=== PATIENT | male | born 1985 | race Caucasian/White ===

== ENCOUNTER 2019-11-10 02:37 | Outpatient (CLI) | payer OTHER, SELFPAY ==
[2019-11-10 23:05] LABS: SARS-CoV-2 RNA PCR Negative
== END 2019-11-10 02:38 | disposition home or self-care (01) ==
LOC: ANHCOVIDDT 03:18
PROVIDERS: PCP Family Medicine; Visit Provider Otolaryngology
DX: Z01.812 Encounter for preprocedural laboratory examination (principal); Z11.59 Encounter for screening for other viral diseases
CPT/HCPCS: 87635; C9803; U0003

== ENCOUNTER 2019-11-13 01:02 | Day surgery (SDC) | payer OTHER, SELFPAY ==
[2019-11-07 11:44] VITALS: BMI 29.6
--- NOTE | 2019-11-12 06:40 | PM.HPGS ---
History of Present Illness History of Present Illness Consent: Risks, benefits, and alternatives have been discussed and questions answered. Patient agrees to proceed with procedure. Chief complaint: Left Neck Mass Narrative: Mukesh Byrd is a 33 year old male with an enlarged submandibular area mass unresponsive to medical management Review of Systems Review of Systems: All systems reviewed & are unremarkable except as noted in HPI and below ROS unobtainable: Yes unobtainable due to endotracheal tube PMFSH Social History Social History Smoking packs per day: 0.5 Smoking cigarettes per day: 10.0 Years smoked: 10 Smoking pack-years: 5.00 Smoking status: Former smoker Tobacco type: cigarettes Smokeless tobacco user: chewing tobacco Second hand tobacco smoke exposure: Yes Smoking end date: 04/18/13 Additional smoking assessment comments: QUIT SMOKING 5-6 YEARS AGO Alcohol intake: never Substance use: never 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
[2019-11-13] VITALS (7 sets, daily range): BP systolic 111–135; BP diastolic 64–80; PULSE 56–78; RESP 14–20; TEMP 36.3–36.6; O2SAT 100
--- NOTE | 2019-11-13 06:09 | WPDHPUPDATE1 ---
History and Physical Update Update Date/Time: 11/13/19 06:09 History and Physical has been reviewed, including an updated exam of the patient. There are NO changes in the patient's condition. Risks, benefits, and alternatives have been discussed and questions answered. Patient agrees to proceed with procedure.
[2019-11-13] MEDS: LACTATED RINGERS 1,000 ML 30 ML IV CONT ×2 (08:00→10:14)
--- NOTE | 2019-11-13 08:12 | P.PNAN_ITS ---
Anes - Initial Pre Proc Eval Procedure: Operation Date: 11/13/19 09:30 Proposed Procedures p Excision Left Neck Mass - Master Jerez MD Date/Time: 11/13/19 08:12 Surgeon: Master Jerez MD Pre Op Diagnosis: Left Neck Mass Patient Data Age: 33 Gender: M Height: 1.73 m Weight: 89.1 kg Last Vital Signs Temp 36.6 C 11/13/19 08:03 Pulse 63 11/13/19 08:03 Resp 20 11/13/19 08:03 BP 123/74 11/13/19 08:03 Pulse Ox 100 11/13/19 08:03 Allergies Allergy/AdvReac Type Severity Reaction Status Date / Time No Known Allergies Allergy Verified 11/13/19 08:02 Home Medications Medication Instructions Recorded Confirmed Type green tea leaf ext-green tea 1 tablet PO DAILY 11/07/19 11/13/19 History [Green Tea Complex] Patient hx anesthesia problems: none Family hx anesthesia problems: none [facility] Past Medical History Medical History (Updated 11/13/19 @ 08:14 by Zaki Vines MD) Mass of left side of neck Overweight (BMI 25.0-29.9) Social History Social History Smoking packs per day: 0.5 Smoking cigarettes per day: 10.0 Years smoked: 10 Smoking pack-years: 5.00 Smoking status: Former smoker Tobacco type: cigarettes Smokeless tobacco user: chewing tobacco Second hand tobacco smoke exposure: Yes Smoking end date: 04/18/13 Additional smoking assessment comments: QUIT SMOKING 5-6 YEARS AGO Alcohol intake: never Substance use: never 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[employer] Gender identity (if verbalized by the patient): Male Spiritual care concerns: No Agree to blood products: Yes Anes - Eval Final PreProcedure Day of Procedure 11/13/19 08:12 Patient weight: overweight Heart: regular rate and rhythm Lungs: clear to auscultation and normal air movement Airway: Mallampati scale class II Neurological: alert and oriented Last oral intake: >/= 8 hours ASA classification: II Emergent: no Anesthetic plan: proceed Anesthesia type and monitoring: general ETT Informed Consent: The patient's anesthetic plan and its attendant risks and benefits were discussed with the patient/family/POA. Questions were solicited and answers provided to the satisfaction of the patient/family/POA.
[2019-11-13] MEDS: LIDO 1%/EPINEPHRINE 1:100,000 20 ML VIAL INFILTRATE (09:20)
--- NOTE | 2019-11-13 09:29 | PM.PROC ---
Procedure Note - Detailed Date of procedure: 11/13/19 Pre-op diagnosis: Left Neck Mass Post-op diagnosis: same Procedure performed: excision left neck mass Description of procedure: patient was prepped and draped fashion general anesthesia and incision was made under the parallel to the body of the mandible was injected with xylocaine with adrenaline incision was made through the subcutaneous tissue a large lymphoid tissue mass was identified was removed LigaSure dissection hemostasis was obtained with bipolar cautery closed in layers of David chromic and subcuticular Monocryl sent for pathologic Surgeon: Master Jerez MD Estimated blood loss (mL): 10 Drains: No Packing: No Pathology: yes Complications: No immediate complications Condition: stable Disposition: PACU
[2019-11-13] MEDS: KETOROLAC 30 MG/ML VIAL (*BKC) IV PUSH (10:48)
--- NOTE | 2019-11-13 10:56 | SUR.PHASEII ---
1040; PT AWAKE AND ALERT. RESP EVEN UNLABORED. P,W,D. PT HAS DRY COUGH. STATES ITS MAKING HIS HEADACHE WORSE. CALLED DR LINDSAY. IV TORADOL 30MG ORDERED X1.
== END 2019-11-13 11:49 | disposition home or self-care (01) ==
PROVIDERS: PCP Family Medicine; Visit Provider Otolaryngology
PROC: (CPT 38510; principal; 2019-11-13 09:30)
DX: R59.0 Localized enlarged lymph nodes (principal); Z87.891 Personal history of nicotine dependence
CPT/HCPCS: 38510; 88184; 88185; 88305; 88333; J0330; J1100; J1885; J2250; J2405; J2704; J3010; J7120